=== PATIENT | male | born 1940 | race Caucasian/White ===

== ENCOUNTER 2017-07-06 12:29 | Emergency (ER) | payer MEDICARE, OTHER ==
[~2017-07-06] VITALS: Ht 185.4 cm; Wt 95.3 kg
[~2017-07-06 12:29] MED LIST: ASPIRIN 81MG TA81 MG PO; GABAPENTIN300 MG PO; LEVAQUIN500 MG PO; MIRALAX POWDER255 GM PO; OSTEO BI-FLEX1 TAB PO; PREDNICOT20 MG PO
[2017-07-06 12:31] VITALS: BP 147/81
--- OUTSIDE RECORDS SUMMARY | 2017-07-06 12:34 | External Medical Summary Rpt | CCD ---
Author Author ACE Address Unknown Phone [email or web address] Purpose Continuity of Care Document - through 2016
--- OUTSIDE RECORDS SUMMARY | 2017-07-06 12:34 | External Medical Summary Rpt | CCD ---
Author Author [employer] Organization [employer] Address Unknown Phone Unavailable Purpose Continuity of Care Document - through 2016
--- OUTSIDE RECORDS SUMMARY | 2017-07-06 12:34 | External Medical Summary Rpt | CCD ---
Author Author , ACE BELLO Address Unknown Phone [email or web address] Immunization Name Date Rout CVX Reac Dose Comm Prov Is Faci e tion ent ider Refu lity Give sed n Infl 10-1 Intr 135 0.5 Hist D049 No D049 uenz 7-20 amus mL oric 01 01 a, 17 cula al High r Info rmat Dose ion - Sour ce Unsp ecif ied Tdap 06-2 Intr 115 0.5 Hist D049 No D049 , 1-20 amus mL oric 01 01 Adso 17 cula al rbed r Info rmat ion - Sour ce Unsp ecif ied
--- OUTSIDE RECORDS SUMMARY | 2017-07-06 12:34 | External Medical Summary Rpt | CCD ---
Author Author , ACE BELLO Address Unknown Phone [email or web address] Immunization Name Date Rout CVX Reac Dose [...]
--- OUTSIDE RECORDS SUMMARY | 2017-07-06 12:34 | External Medical Summary Rpt | CCD ---
Author Author ACE Address Unknown Phone [email or web address] Purpose Continuity of Care Document - through 2016
--- OUTSIDE RECORDS SUMMARY | 2017-07-06 12:35 | External Medical Summary Rpt ---
Author Author ACE [employer], [employer] Organization [employer] Address Unknown Phone Unavailable
[2017-07-06 12:51] LABS: HEMOGLOBIN 14.5 g/dL (14.1-18.0); LYMPH # 1.3 K/mm3 (0.7-4.5); LYMPH % 16.5 % (10-50)
--- NOTE | 2017-07-06 12:51 | Emergency Room Report ---
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 N Clinical Suspician of Infection? N Mental Status: 1 - Regular (Normal Baseline) Sepsis Risk:Low Sepsis Risk Have you (or family members/close friends) recently traveled outside the [place]? N If Yes, where/when: Have you had exposure to infectious disease within the past month? N TB? Other? 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 Onset at twelve noon today. He denies prior hx of CAD, denies HTN, denies DM, denies HTN, denies hyperlipidemia, denies FH CAD, denies tobacco use. No recent travel; no syncope, no palpitations. Was at the [employer] [facility] earlier today for removal of moles from right jainism and right hand. This was at 0830. ALLERGIES Coded Allergies: No Known Allergies (07/06/17) Home Medications Reported Medications ASPIRIN (Aspirin) 81 MG PO DAILY History Medical History General CAD? No Angina: No [place]: No Hypertension? No Hyperlipidemia? No CHF? No DVT? No PE? No COPD? No Asthma? No Anemia? No GERD? No Gastric ulcers? No GI Bleed? No Hernia? No Thyroid Problems? No Hypothyroidism? No CVA? No Seizures? No Diabetes? No End Stage Renal Disease? No UTI? No Stones? No GB Disease: No Nephritic Syndrome? No Asplenia? No Hepatitis? Yes Sickle Cell Disease? No Arthritis? No Migraines? No Cataracts? No Glaucoma? No MRSA? No HIV? No TB? No Anxiety? No Depression? No Cancer? Yes Site: SKIN CANCER Immunization Hx DT/Tetanus 1-4 Years Ago Flu 2017 Pneumonia Never Had Surgical Hx Previous Surgery?Y SKIN CANCER BACK SURGERY Family History Family Hx Diabetes Yes CAD No Hypertension Yes Hyperlipidemia Yes Cancer Yes TB No Social History Smoking Hx Smoker: Never Smoker Tobacco: No Alcohol Alcohol: No Review of Systems All Other Systems Reviewed and Negative Cardiovascular see HPI Gastrointestinal see HPI Skin see HPI Physical Exam Vital Signs Vital Signs Date Time Temp Pulse Resp B/P Pulse O2 O2 Flow FiO2 Ox Delivery Rate 07/06 1353 98.5 92 16 128/64 98 07/06 1315 98.2 65 16 140/74 95 07/06 1231 98.2 67 16 147/81 95 General Appearance normal appearance, WD/WN, no apparent distress Eye Exam - bilateral eye normal exam, bilateral eye PERRL, bilateral eye EOMI Neck normal inspection, non-tender, supple, full range of motion Respiratory Status Yes: trachea midline, chest symmetrical, non tender chest. No: respiratory distress, tender on palpation, use of accessory muscles, pain on inspiration, pain on expiration, productive cough, non productive cough. Lung Sounds bilateral: normal breath sounds, lungs clear. Cardiovascular normal exam, regular rate/rhythm, no peripheral edema, no gallop, no JVD, no murmur, no rub, normal peripheral pulses Gastrointestinal normal bowel sounds, normal exam, non tender, soft, no organomegaly, no pulsatile mass, no guarding, no rebound Extremities non-tender, normal range of motion, normal inspection, normal capillary refill, no calf tenderness, no pedal edema Strength 5 Upper Ext (L), 5 Upper Ext (R), 5 Lower Ext (L), 5 Lower Ext (R) Neurologic alert, normal exam, no motor/sensory deficits, oriented x 3 (speech clear and fluent) Glascow Coma Scale Glascow Coma Scale Response Value EYE response: 4 Spontaneously 4 MOTOR response: 6 OBEYS 6 VERBAL response: 5 Oriented & Converses 5 Total 15 Skin intact, normal color, warm/dry Medical Decision Making LABS/Meds/Orders Pt receiving controlled substance in ED? No Results/Orders Laboratory Tests 07/06/17 1310: Sodium 138, Potassium 4.1, Chloride 104, Carbon Dioxide 28, BUN 16, Creatinine 1.2, Estimated Creat Clear 72, Estimated GFR (MDRD) 59, Glucose 105, Calcium 9.0 , Total Bilirubin 0.6, AST 19, ALT 31, Alkaline Phosphatase 58, Creatine Kinase 80, CK-MB (CK-2) Rel Index 1.1, CK and CKMB Interp 0.9, Troponin I < 0.02, Total Protein 6.8, Albumin 3.7, Globulin 3.1, Albumin/Globulin Ratio 1.2 07/06/17 1240: WBC 7.8, RBC 4.75, Hgb 14.5, Hct 42.9, MCV 90.4, RDW 12.9, Plt Count 137 L, MPV 8.4, Gran % 73.0, Gran # 5.7, Lymphocytes % 16.5, Monocytes % 9.1, Eosinophils % 0.9, Basophils % 0.5, Lymphocytes # 1.3, Monocytes # 0.7, Eosinophils # 0.1, Basophils # 0.0, PUBS MCHC 33.9, MCH 30.6 Current Medication Orders Sig/Hermilo Start time Last Medication Dose Route Stop Time Status Admin Aspirin 0 .STK-MED ONE 07/06 1313 DC .ROUTE Aspirin 324 MG ONCE ONE 07/06 1245 DC 07/06 PO 07/06 1246 1313 Sodium Chloride 10 ML PRN PRN 07/06 1245 AC IV 07/07 1234 Orders Procedure Date/time Status ECHO ADULT 07/06 1305 Active ELECTROCARDIOGRAM REQUEST 07/06 1234 Active IV SALINE LOCK 07/06 1234 Active CBC WITH AUTO DIFF 07/06 1234 Complete CARDIAC ENZYMES 07/06 1234 Complete CHEM 12 PROFILE 07/06 1234 Complete 12 LEAD EKG-ALLA (INITIAL) 07/06 1230 Active CM/EKG CM/EKG EKG rate, NSR, rhythm, no evid. of ischemic chgs, no ectopy, normal QRS, normal TN, normal EKG (inc RBBB NSR 68;) XRAY/CT/US XRAY/CT/US XRAY chest XR interpretation by reviewed by me (report reviewed) Xray Results normal/NAD, no infiltrates, normal heart size, normal lung inflation iglesia (report neg acute) Consult MD Physician Consult 1 Time Called [address] Fuchs to admit; requesting cardiology consult. Physician Consult 2 Time Called 1402 Reason Cardiology eval/care Progress ED Progress Notes Date 07/06/17 Time 1448 Comment Gigi Galo has seen patient in ED. See his note for recommendations. Departure Departure Time of Disposition 1404 Disposition Still a Patient Clinical Impression Primary Impression: Chest pain Condition STABLE Referrals Shana Fuchs MD (PCP/Family) ED Critical Care Critical Care No at 1446
--- NOTE | 2017-07-06 12:51 | Emergency Room Report ---
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 N Clinical Suspician of Infection? N Mental Status: 1 - Regular (Normal Baseline) Sepsis Risk:Low Sepsis Risk Have you (or family members/close friends) recently traveled outside the [place]? N If Yes, where/when: Have you had exposure to infectious disease within the past month? N TB? Other? 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 Onset at twelve noon today. He denies prior hx of CAD, denies HTN, denies DM, denies HTN, denies hyperlipidemia, denies FH CAD, denies tobacco use. No recent travel; no syncope, no palpitations. Was at the [facility] earlier today for removal of moles from right mosque and right hand. This was at 0830. ALLERGIES Coded Allergies: No Known Allergies (07/06/17) Home Medications Reported Medications ASPIRIN (Aspirin) 81 MG PO DAILY History Medical History General CAD? No Angina: No [place]: No Hypertension? No Hyperlipidemia? No CHF? No DVT? No PE? No COPD? No Asthma? No Anemia? No GERD? No Gastric ulcers? No GI Bleed? No Hernia? No Thyroid Problems? No Hypothyroidism? No CVA? No Seizures? No Diabetes? No End Stage Renal Disease? No UTI? No Stones? No GB Disease: No Nephritic Syndrome? No Asplenia? No Hepatitis? Yes Sickle Cell Disease? No Arthritis? No Migraines? No Cataracts? No Glaucoma? No MRSA? No HIV? No TB? No Anxiety? No Depression? No Cancer? Yes Site: SKIN CANCER Immunization Hx DT/Tetanus 1-4 Years Ago Flu 2017 Pneumonia Never Had Surgical Hx Previous Surgery?Y SKIN CANCER BACK SURGERY Family History Family Hx Diabetes Yes CAD No Hypertension Yes Hyperlipidemia Yes Cancer Yes TB No Social History Smoking Hx Smoker: Never Smoker Tobacco: No Alcohol Alcohol: No Review of Systems All Other Systems Reviewed and Negative Cardiovascular see HPI Gastrointestinal see HPI Skin see HPI Physical Exam Vital Signs Vital Signs Date Time Temp Pulse Resp B/P Pulse O2 O2 Flow FiO2 Ox Delivery Rate 07/06 1353 98.5 92 16 128/64 98 07/06 1315 98.2 65 16 140/74 95 07/06 1231 98.2 67 16 147/81 95 General Appearance normal appearance, WD/WN, no apparent distress Eye Exam - bilateral eye normal exam, bilateral eye PERRL, bilateral eye EOMI Neck normal inspection, non-tender, supple, full range of motion Respiratory Status Yes: trachea midline, chest symmetrical, non tender chest. No: respiratory distress, tender on palpation, use of accessory muscles, pain on inspiration, pain on expiration, productive cough, non productive cough. Lung Sounds bilateral: normal breath sounds, lungs clear. Cardiovascular normal exam, regular rate/rhythm, no peripheral edema, no gallop, no JVD, no murmur, no rub, normal peripheral pulses Gastrointestinal normal bowel sounds, normal exam, non tender, soft, no organomegaly, no pulsatile mass, no guarding, no rebound Extremities non-tender, normal range of motion, normal inspection, normal capillary refill, no calf tenderness, no pedal edema Strength 5 Upper Ext (L), 5 Upper Ext (R), 5 Lower Ext (L), 5 Lower Ext (R) Neurologic alert, normal exam, no motor/sensory deficits, oriented x 3 (speech clear and fluent) Glascow Coma Scale Glascow Coma Scale Response Value EYE response: 4 Spontaneously 4 MOTOR response: 6 OBEYS 6 VERBAL response: 5 Oriented & Converses 5 Total 15 Skin intact, normal color, warm/dry Medical Decision Making LABS/Meds/Orders Pt receiving controlled substance in ED? No Results/Orders Laboratory Tests 07/06/17 1310: Sodium 138, Potassium 4.1, Chloride 104, Carbon Dioxide 28, BUN 16, Creatinine 1.2, Estimated Creat Clear 72, Estimated GFR (MDRD) 59, Glucose 105, Calcium 9.0 , Total Bilirubin 0.6, AST 19, ALT 31, Alkaline Phosphatase 58, Creatine Kinase 80, CK-MB (CK-2) Rel Index 1.1, CK and CKMB Interp 0.9, Troponin I < 0.02, Total Protein 6.8, Albumin 3.7, Globulin 3.1, Albumin/Globulin Ratio 1.2 07/06/17 1240: WBC 7.8, RBC 4.75, Hgb 14.5, Hct 42.9, MCV 90.4, RDW 12.9, Plt Count 137 L, MPV 8.4, Gran % 73.0, Gran # 5.7, Lymphocytes % 16.5, Monocytes % 9.1, Eosinophils % 0.9, Basophils % 0.5, Lymphocytes # 1.3, Monocytes # 0.7, Eosinophils # 0.1, Basophils # 0.0, PUBS MCHC 33.9, MCH 30.6 Current Medication Orders Sig/Hermilo Start time Last Medication Dose Route Stop Time Status Admin Aspirin 0 .STK-MED ONE 07/06 1313 DC .ROUTE Aspirin 324 MG ONCE ONE 07/06 1245 DC 07/06 PO 07/06 1246 1313 Sodium Chloride 10 ML PRN PRN 07/06 1245 AC IV 07/07 1234 Orders Procedure Date/time Status ECHO ADULT 07/06 1305 Active ELECTROCARDIOGRAM REQUEST 07/06 1234 Active IV SALINE LOCK 07/06 1234 Active CBC WITH AUTO DIFF 07/06 1234 Complete CARDIAC ENZYMES 07/06 1234 Complete CHEM 12 PROFILE 07/06 1234 Complete 12 LEAD EKG-ALLA (INITIAL) 07/06 1230 Active CM/EKG CM/EKG EKG rate, NSR, rhythm, no evid. of ischemic chgs, no ectopy, normal QRS, normal CT, normal EKG (inc RBBB NSR 68;) XRAY/CT/US XRAY/CT/US XRAY chest XR interpretation by reviewed by me (report reviewed) Xray Results normal/NAD, no infiltrates, normal heart size, normal lung inflation iglesia (report neg acute) Consult MD Physician Consult 1 Time Called [address] Fuchs to admit; requesting cardiology consult. Physician Consult 2 Time Called 1402 Reason Cardiology eval/care Progress ED Progress Notes Date 07/06/17 Time 1448 Comment Gigi Galo has seen patient in ED. See his note for recommendations. Departure Departure Time of Disposition 1404 Disposition Still a Patient Clinical Impression Primary Impression: Chest pain Condition STABLE Referrals Shana Fuchs MD (PCP/Family) ED Critical Care Critical Care No at 1445
--- NOTE | 2017-07-06 13:08 | RADIOLOGY REPORT PS360 ---
CHEST(2 VIEWS-NOT PORTABLE) HISTORY: CHEST PAIN ORDERING PHYSICIAN: Esther Ball MD PATIENT AGE: 77 years COMPARISON: 10/10/2016 FINDINGS: The cardiomediastinal silhouette and pulmonary vascularity are within normal limits. The lungs are clear without infiltrates, suspicious nodules, or pleural effusions. No acute bony abnormalities. IMPRESSION: Negative chest, no acute finding
[2017-07-06 13:52] LABS: BUN 16 mg/dL (7-18)
[2017-07-06 13:54] LABS: GFR (ESTIMATED) 59 ML/MIN (>60)
--- OUTSIDE RECORDS SUMMARY | 2017-07-06 14:37 | External Medical Summary Rpt | CCD ---
Author Author , ACE BELLO Address Unknown Phone [email or web address] Purpose Continuity of Care Document - 07-06-2017 through 2016 Results Labs Lab Lab Date Result Refere Interp Status Commen Order Detail nces retati t Range on CBC w auto diff (07-06-2017 12:40) Automat = 0.0 0-0.2 complet ed 017 K/MM3 ed blood 12:40 basophi l count (count/ vo Baso % = 0.5 % 0.1-2.0 complet 017 ed 12:40 Automat = 0.1 0.0-0.4 complet ed 017 K/mm3 ed blood 12:40 eosinop hil count Blood = 137 142-424 complet platele 017 K/mm3 ed t count 12:40 Red = 4.75 4.6-6.2 complet blood 017 M/mm3 ed cell 12:40 count Automat = 12.9 11.5-17 complet ed 017 % .5 ed erythro 12:40 cyte distrib ution width Blood = 7.8 4.8-10. complet leukocy 017 K/MM3 8 ed natalia 12:40 count (number /volume ) Automat = 0.9 % 0.1-12. complet ed 017 0 ed blood 12:40 eosinop hils/10 0 leukocy t Blood = 5.7 1.3-8.0 complet granulo 017 K/mm3 ed cytes 12:40 automat ed count (numb Granulo = 73.0 37.0-80 complet cyte 017 % .0 ed percent 12:40 age Blood = 42.9 42.0-52 complet hematoc 017 % .0 ed rit 12:40 (volume fractio n) Blood 12-01-2 = 14.5 14.1-18 complet hemoglo 017 g/dL .0 ed bin 12:40 measure ment (mass/v olum Absolut = 1.3 0.7-4.5 complet e 017 K/mm3 ed lymphoc 12:40 yte count Lymphoc = 16.5 10-50 complet yte 017 % ed count, 12:40 blood, automat ed Mean = 30.6 27-31.2 complet corpusc 017 pg ed ular 12:40 hemoglo bin (MCH) determ Automat = 33.9 31.8-35 complet ed 017 g/dl .4 ed erythro 12:40 cyte mean corpusc ular h Automat = 90.4 82.2-97 complet ed 017 fl .8 ed erythro 12:40 cyte mean corpusc ular v Absolut = 0.7 0.1-1.0 complet e 017 K/mm3 ed monocyt 12:40 e count Edgar % = 9.1 % 1.7-9.3 complet 017 ed 12:40 Automat = 8.4 7.4-10. complet ed 017 fl 4 ed blood 12:40 platele t mean volume jordan
--- OUTSIDE RECORDS SUMMARY | 2017-07-06 14:37 | External Medical Summary Rpt | CCD ---
Author Author , ACE BELLO Address Unknown Phone [email or web address] Purpose Continuity of Care Document - 07-06-2017 [...] 017 K/mm3 ed monocyt 12:40 e count [place] % = 9.1 % 1.7-9.3 complet 017 ed 12:40 Automat = 8.4 7.4-10. complet ed 017 fl 4 ed blood 12:40 platele t mean volume jordan
--- OUTSIDE RECORDS SUMMARY | 2017-07-06 14:37 | External Medical Summary Rpt | CCD ---
Author Author , ACE BELLO Address Unknown Phone [email or web address] Immunization Name Date Rout CVX Reac Dose [...]
--- OUTSIDE RECORDS SUMMARY | 2017-07-06 14:37 | External Medical Summary Rpt ---
Author Author [employer], [employer] Organization [employer] Address Unknown Phone Unavailable Results CBC W Auto Differential panel in Blood Observa Value Referen Units Interpr Notes Date tion ce etation Range Basophils 0 - 0.2 K/MM3 Normal No Jul 06 inform2016 [#/volume on in 12:40 PM ] in source Blood by data Automated count Basophils 0.1 - 2.0 % Normal No Jul 06 /2016 leukocyte on in 12:40 PM s in source Blood by data Automated count Eosinophi 0.0 - 0.4 K/mm3 Normal No Jul 06 ls 2016 [#/volume on in 12:40 PM ] in source Blood by data Automated count Eosinophi 0.1 - % Normal No Jul 06 ls/100 12.0 2016 leukocyte on in 12:40 PM s in source Blood by data Automated count Granulocy 1.3 - 8.0 K/mm3 Normal No Jul 06 natalia 2016 [#/volume on in 12:40 PM ] in source Blood by data Automated count Granulocy 37.0 - % Normal No Jul 06 natalia/100 80.0 2016 leukocyte on in 12:40 PM s in source Blood by data Automated count Hematocri 42.0 - % Normal Jul 06 t [Volume 52.0 ati 2016 on in 12:40 PM Fraction] source of Blood data Hemoglobi 14.1 - g/dL Normal No Jul 06 n 18.0 2016 [Mass/vol on in 12:40 PM ume] in source Blood data Lymphocyt 0.7 - 4.5 K/mm3 Normal No Jul 06 es 2016 [#/volume on in 12:40 PM ] in source Unspecifi data ed specimen by Automated count Lymphocyt 10 - 50 % Normal No Jul 06 es 2016 [#/volume on in 12:40 PM ] in source Unspecifi data ed specimen by Automated count Erythrocy 27 - 31.2 pg Normal No Jul 06 te mean 2016 corpuscul on in 12:40 PM ar source hemoglobi data n [Entitic mass] Erythrocy 31.8 - g/dl Normal No Jul 06 te mean 35.4 2016 corpuscul on in 12:40 PM ar source hemoglobi data n concentra tion [Mass/vol ume] by Automated count Erythrocy 82.2 - fl Normal No Jul 06 te mean 97.8 2016 corpuscul on in 12:40 PM ar volume source [Entitic data volume] by Automated count Monocytes 0.1 - 1.0 K/mm3 Normal No Jul 06 inform2016 [#/volume on in 12:40 PM ] in source Blood by data Automated count Monocytes 1.7 - 9.3 % Normal No Jul 06 /100 2016 leukocyte on in 12:40 PM s in source Blood by data Automated count Platelet 7.4 - fl Normal No Jul 06 mean 10.4 2016 volume on in 12:40 PM [Entitic source volume] data in Blood by Automated count Platelets 142 - 424 K/mm3 Low No Jul 06 inform2016 [#/volume on in 12:40 PM ] in source Blood data Erythrocy 4.6 - 6.2 M/mm3 Normal No Jul 06 natalia inform2016 [#/volume on in 12:40 PM ] in source Amniotic data fluid Erythrocy 11.5 - % Normal No Jul 06 te 17.5 2016 distribut on in 12:40 PM ion width source [Entitic data volume] by Automated count Leukocyte 4.8 - K/MM3 Normal No Jul 06 s 10.8 inform2016 [#/volume on in 12:40 PM ] in source Blood data
--- OUTSIDE RECORDS SUMMARY | 2017-07-06 14:37 | External Medical Summary Rpt | CCD ---
Author Author , ACE BELLO Address Unknown Phone [email or web address] Immunization Name Date Rout CVX Reac Dose [...]
--- NOTE | 2017-07-06 14:51 | CONSULT NOTE ---
Standard Demographics Patient Demo Date of Consultation: 07/06/17 Referring Provider: Axel Fuchs MD Reason for Consultation: chest pain PRIMARY DIAGNOSIS: chest pain Problem list Problem list: 1. Multiple skin cancers, status post treatment History of present illness: History of present illness: 77-year-old white male seen in the emergency department for complaint of chest pain. Patient states he had sudden onset of RIGHT arm discomfort at rest that progressed to include right-sided chest discomfort with associated nausea and near-syncope symptoms. This occurred a couple of hours after having some skin lesions treated this morning and after eating a late breakfast. Patient was brought to the emergency department by his significant other. In total, the symptoms last for about 20-30 minutes. He was given aspirin upon arrival to the emergency department. No other treatment administered. Initial workup has revealed normal troponin, electrocardiogram without acute ST segment changes and chest x-ray without evidence of congestive heart failure. Cardiology consulted for evaluation and recommendations. The patient denies any history of cardiac problems, hypertension, hyperlipidemia , diabetes or tobacco use. He denies any significant family history of early heart disease. [place], fishing and playing golf. He recently has started jumping rope in the last 6 months without significant difficulty. He does note some shortness of breath recently while jumping rope but attributes this to his advanced age. He has been on Augmentin this week but states he takes it with food and has had no gastrointestinal upset. Denies any previous history of reflux or heartburn symptoms. Past Medical History: General: Hypertension No CVA No Seizures No TB No COPD No Asthma No Diabetes No Angina No AR No Hyperlipidemia No Urinary No Cancer Yes Rheumatic H.D. No Ulcers No MRSA No GB Disease No Other LEG/ARM/FACE Past Surgical HX: Previous Surgery?Y SKIN CANCER BACK SURGERY Allergies Coded Allergies: No Known Allergies (07/06/17) Home medications: Reported Medications ASPIRIN (Aspirin) 81 MG PO DAILY Current Medications: Current Medications Aspirin 0 .STK-MED ONE .ROUTE (DC) Aspirin 324 MG ONCE ONE PO (DC) Sodium Chloride 10 ML PRN PRN IV Immunization HX DT/Tetanus 1-4 Years Flu 2017 Pneumonia Never Had Family history Family HX Family Hx Insignificant No Diabetes Yes CAD No Hypertension Yes Hyperlipidemia Yes Cancer Yes TB No Social Hx: Smoking HX Tobacco No Alcohol Alcohol: No Hx of Drug Use Drug Use? No Patien't marital status is Review of systems: Constitutional No: no symptoms reported. Respiratory No: no symptoms reported. Cardiovascular see HPI, chest pain Gastrointestinal/Abdominal No no symptoms reported Genitourinary No: no symptoms reported. Musculoskeletal muscle stiffness. Neurological No: no symptoms reported. Exam: Admission Vital Signs: 1ST Vital Signs Result Date Time Pulse Ox 95 07/06 1231 B/P 147/81 07/06 1231 Temp 98.2 07/06 1231 Pulse 67 07/06 1231 Resp 16 07/06 1231 Last Vital Signs: Vital Signs Result Date Time Pulse Ox 98 07/06 1353 B/P 128/64 07/06 1353 Temp 98.5 07/06 1353 Pulse 92 07/06 1353 Resp 16 07/06 1353 Exam General appearance: alert, awake, no acute distress Neck: no carotid bruit, no JVD Cardiovascular: regular rate & rhythm Respiratory: clear to auscultation ABD: soft, no tenderness Extremities: moves all, no peripheral edema Neuro: alert, intact, oriented Laboratory data: Laboratory Tests 07/06/17 1310: Sodium 138, Potassium 4.1, Chloride 104, Carbon Dioxide 28, BUN 16, Creatinine 1.2, Estimated Creat Clear 72, Estimated GFR (MDRD) 59, Glucose 105, Calcium 9.0 , Total Bilirubin 0.6, AST 19, ALT 31, Alkaline Phosphatase 58, Creatine Kinase 80, CK-MB (CK-2) Rel Index 1.1, CK and CKMB Interp 0.9, Troponin I < 0.02, Total Protein 6.8, Albumin 3.7, Globulin 3.1, Albumin/Globulin Ratio 1.2 07/06/17 1240: WBC 7.8, RBC 4.75, Hgb 14.5, Hct 42.9, MCV 90.4, RDW 12.9, Plt Count 137 L, MPV 8.4, Gran % 73.0, Gran # 5.7, Lymphocytes % 16.5, Monocytes % 9.1, Eosinophils % 0.9, Basophils % 0.5, Lymphocytes # 1.3, Monocytes # 0.7, Eosinophils # 0.1, Basophils # 0.0, PUBS MCHC 33.9, MCH 30.6 Plan Assessment: 1. Right-sided arm and chest pain with normal troponin, electrocardiogram without acute changes and normal chest x-ray. Recommend repeating troponin, obtaining echocardiogram and if both normal then the patient could be discharged home. Consider possible spasm etiology and would cover with Norvasc 5 mg daily until outpatient stress test could be performed. Continue aspirin as he has been taking. Follow-up with us as an outpatient in one to 2 weeks if discharged home. Plan: See above. at [id number]
[2017-07-06] MEDS ORDERED: NORVASC 5MG. TAB5 MG PO (17:03)
[2017-07-06 17:12] VITALS: BP 127/84
--- NOTE | 2017-07-10 10:58 | RADIOLOGY REPORT PS360 ---
PROCEDURE: 2-D M-mode and color Doppler study INDICATIONS FOR THE TEST: Chest pain + COPD Heart Murmur Tobacco Smoking Palpitations Fatigue Syncope Edema Hypertension Diabetes Mellitus Rheumatic Fever SOB+ARRIETA Obesity Hyperlipidemia Family History HD Additional History PATIENT INFORMATION HEIGHT: 75 WEIGHT:205 GENDER: Male B/P: 2-D/M-MODE INTERPRETATION: 2-D MEASUREMENTS OBSERVED VALUES IN CMS Right Ventricular Dimension (RVDd) 2.6 Interventricular Septum (Thickness)(IVsd) 1.3 Left Ventricular Internal Dimensions(LVIDd) 4.2 Left Ventricular Posterior Wall (Thickness)(LVPWd) 1.3 Aortic Root 3.7 Aortic Cusp Separation 2.1 Left Atrial Dimensions (LAD) 4.4 2D 1. Left atrium is mildly enlarged, left ventricle is normal size, there is mild concentric left ventricular hypertrophy, visually estimated ejection fraction 55% with no obvious regional wall motion abnormality. 2. The right atrium and right ventricle are normal size and contractility. 3. The aortic valve is minimally thickened and fibrosed. There is no aortic stenosis. 4. The mitral and tricuspid valve leaflets are minimally thickened. 5. The pulmonic valve is poorly visualized. 6. No significant pericardial effusion noted. DOPPLER INTERROGATION: Doppler interrogation of the aortic, mitral and tricuspid valvular presence of mild mitral and tricuspid regurgitation, tricuspid and jet velocity insufficient for calculation of the right ventricular systolic pressure, grade 1 diastolic dysfunction seen with tissue Doppler evidence of raised left atrial pressure. CONCLUSION: 1. Mildly enlarged left atrium, normal left ventricular size, mild concentric left ventricular hypertrophy, visually estimated ejection fraction 55% with no obvious regional wall motion abnormality, grade 1 diastolic dysfunction seen with tissue Doppler evidence of raised left atrial pressure. 2. Mild mitral and tricuspid regurgitation. 3. No significant pericardial effusion noted.
== END 2017-07-06 17:13 | disposition still patient (30) ==
LOC: ER 12:29 → 2ND 14:35 → ER 14:51 → 2ND 14:51 → ER 17:13
PROVIDERS: Emergency Medicine
DX: R07.9 Chest pain, unspecified (principal); R11.0 Nausea; Z79.82 Long term (current) use of aspirin

== ENCOUNTER → 2017-07-17 | Outpatient (CLI) | payer MEDICARE, OTHER ==
[~2017-07-17] MED LIST changes: +NORVASC 5MG. TAB5 MG PO
--- NOTE | 2017-07-17 14:17 | RADIOLOGY REPORT PS360 ---
CARDIOLITE SPECT MYOCARDIAL PERFUSION SCAN, REST AND STRESS: EXERCISE STRESS [facility] REVIEW QGS EF AND WALL MOTION EVALUATION: QPS - PERFUSION EVALUATION HISTORY: precordial chest pain DOSE: 10.88 mCi technetium 99m mibi intravenously at rest followed by 30.9 mCi technetium 99m mibi following the intravenous ministration of 0.4 mg of Lexiscan. Resting blood pressure is 134/70. Stress blood pressure 129/67. FINDINGS: Ejection fraction is calculated to be 58%. Stress images reveal decreased activity in the mid anterior apical wall rest images reveal uniform myocardial activity. Gated images calculated ejection fraction of 58% with normal wall motion IMPRESSION: Reversible ischemia. Normal ejection fraction normal wall motion. The anterior wall involvement this is considered a high risk stress test
--- NOTE | 2017-07-17 14:17 | RADIOLOGY REPORT PS360 ---
CARDIOLITE SPECT MYOCARDIAL PERFUSION SCAN, REST AND STRESS: EXERCISE STRESS [facility] REVIEW QGS EF AND WALL MOTION EVALUATION: QPS - PERFUSION EVALUATION HISTORY: precordial chest pain DOSE: 10.88 mCi technetium 99m mibi intravenously at rest followed by 30.9 mCi technetium 99m mibi following the intravenous ministration of 0.4 mg of Lexiscan. Resting blood pressure is 134/70. Stress blood pressure 129/67. FINDINGS: Ejection fraction is calculated to be 58%. Stress images reveal decreased activity in the mid anterior apical wall rest images reveal uniform myocardial activity. Gated images calculated ejection fraction of 58% with normal wall motion IMPRESSION: Reversible ischemia. Normal ejection fraction normal wall motion. The anterior wall involvement this is considered a high risk stress test
== END ==
LOC: RAD 07-13 06:00
DX: R07.2 Precordial pain (principal)
CPT/HCPCS: A9502; J2785